=== PATIENT | female | born 1990 | race Hispanic/Latino ===

== ENCOUNTER 2018-01-18 21:07 | Emergency (ER) | payer OTHER ==
[2018-01-18 22:07] LABS: Urine Blood 1+ (NEG); Urine Glucose NEGATIVE (NEG); Urine Protein TRACE (NEG)
[2018-01-18] MEDS ORDERED: ACETAMINOPHEN 500 MG TAB ONE (22:12)
[2018-01-18] MEDS ORDERED: NA CHLORIDE 0.9% 500 ML ONE (22:12)
[2018-01-18 22:26] LABS: Absolute Lymphocytes (CBC) 3.3 K/uL (0.7-4.9); Absolute Monocytes 0.7 K/uL (0.1-1.3); Absolute Neutrophil 7.4 K/uL (1.8-8.0); Basophils % 0.2 % (0-1.3); Eosinophils % 2.3 % (0-4.4); Hematocrit 37.6 % (36.0-45.0); Lymphocytes % 28.4 % (15.3-44.8); MCH 31.1 pg (27.0-35.0); MCV 91.9 fL (80-100); MPV 8.2 fL (7.6-11.3); Monocytes % 6.2 % (3.3-12.3); RBC Red Blood Cell Count 4.09 M/uL (3.86-4.86)
[2018-01-19 01:17] LABS: Urine Amorphous Sediment 2+ /HPF (NONE SEEN); Urine Bacteria <20 /HPF (<20); Urine Culture Reflex Order NOT NEEDED; Urine RBC <5 /HPF (NONE SEEN)
[2018-01-19 01:25] LABS: Potassium 4.1 mmol/L (3.5-5.1)
--- NOTE | 2018-01-19 01:48 | ER ---
Nurse's Notes [facility] Name: Antonia Leblanc Age: 27 yrs Sex: Female : 1990 Arrival Date: 01/18/2018 Time: 21:12 Bed 20 Private MD: Diagnosis: related conditions, unspecified, first trimester;Lower abdominal pain, unspecified Presentation: 01/18 21:32 Presenting complaint: Patient states: Lower abdominal cramping since last week. Patient aj1 reports that she is 9 weeks . She called her OB (Dr. Gee in [place]) and was told if the cramping gets worse to come to the ER for evaluation. Patient states that she has an appointment with her OB on Monday. Denies vaginal bleeding or discharge. Transition of care: patient was not received from another setting of care. Onset of symptoms was January 2018. Risk Assessment: Do you want to hurt yourself or someone else? Patient reports no desire to harm self or others. Initial Sepsis Screen: Does the patient meet any 2 criteria? No. Patient's initial sepsis screen is negative. Does the patient have a suspected source of infection? No. Patient's initial sepsis screen is negative. Care prior to arrival: None. 21:32 Method Of Arrival: Ambulatory aj1 21:32 Acuity: CHANTELLE 3 aj1 Triage Assessment: 21:36 General: Appears in no apparent distress. uncomfortable, Behavior is calm, cooperative, aj1 appropriate for age. Pain: Complains of pain in right lower quadrant and left lower quadrant Pain currently is 5 out of 10 on a pain scale. Quality of pain is described as crampy. Neuro: Level of Consciousness is awake, alert, obeys commands. Cardiovascular: Patient's skin is warm and dry. Respiratory: Airway is patent Respiratory effort is even, unlabored, Respiratory pattern is regular, symmetrical. GI: Reports cramping. : Denies burning with urination, discharge. 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 - Social history:: Smoking status: Patient/guardian denies using tobacco. - Ebola Screening: : Patient denies travel to an Ebola-affected area in the 21 days before illness onset. Screenin:00 Abuse screen: Denies threats or abuse. Denies injuries from another. Nutritional ak1 screening: No deficits noted. Tuberculosis screening: No symptoms or risk factors identified. Fall Risk None identified. Assessment: 22:00 GI: Bowel sounds present X 4 quads. Abd is soft and non tender X 4 quads. Reports ak1 cramping, pt stated lower abd cramps intermittent for "weeks" pt stated appointment next Monday with Dr. Gee. pt denies vaginal bleeding, pt denies vaginal discharge. 01/19 00:28 Reassessment: Patient appears in no apparent distress at this time. No changes from ak1 previously documented assessment. Patient and/or family updated on plan of care and expected duration. Pain level reassessed. Patient is alert, oriented x 3, equal unlabored respirations, skin warm/dry/pink. lab results pending. 01:39 Reassessment: outside lab called for recollect, unable to contact inside lab after ak1 several attempts. 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 Vital Signs: 01/18 21:36 BP 132 / 78; Pulse 85; Resp 18; Temp 98.8(TE); Pulse Ox 100% on R/A; Weight 122.47 kg aj1 (R); Height 5 ft. 2 in. (157.48 cm) (R); Pain 5/10; 21:59 BP 121 / 74; Pulse 86; Resp 18; Pulse Ox 100% on R/A; ak1 01/19 01:38 BP 114 / 63; Pulse 82; Resp 16; Temp 98.6; Pulse Ox 100% on R/A; ak1 01/18 21:36 Body Mass Index 49.38 (122.47 kg, 157.48 cm) [facility] ED Course: 01/18 21:12 Patient arrived in ED. es 21:35 Triage completed. aj1 21:36 Arm band placed on Patient placed in an exam room. aj1 21:39 Franki Rogers PA is PHCP. cp 21:39 Franki Gray MD is Attending Physician. cp 21:41 Brissa Irizarry, RN is Primary Nurse. ak1 21:59 Initial lab(s) drawn, by me, sent to lab. Urine collected: clean catch specimen. ak1 Inserted saline lock: 20 gauge in right antecubital area, using aseptic technique. Blood collected. 22:00 Patient has correct armband on for positive identification. Placed in gown. Bed in low ak1 position. Call light in reach. Side rails up X 1. Adult w/ patient. Pulse ox on. NIBP on. 22:14 US Transvaginal Ob In Process Unspecified. EDMS 01/19 01:39 No provider procedures requiring assistance completed. ak1 01:57 IV discontinued, intact, bleeding controlled, No redness/swelling at site. Pressure ak1 dressing applied. Administered Medications: 01/18 22:30 Drug: NS 0.9% 500 ml Route: IV; Rate: bolus; Site: right antecubital; ak1 01/19 01:58 Follow up: IV Status: Completed infusion ak1 01/18 22:30 Drug: Tylenol 1000 mg Route: PO; ak1 01/19 01:57 Follow up: Response: No adverse reaction ak1 Outcome: 01:47 Discharge ordered by . cp 01:56 Discharged to home ambulatory, with family. ak1 01:56 Condition: good 01:56 Discharge instructions given to patient, family, Instructed on discharge instructions, follow up and referral plans. Demonstrated understanding of instructions, follow-up care. 01:57 Patient left the ED. ak1 Signatures: Dispatcher [employer] Rebekah Vieira RN RN aj1 Merry Mirza Amber, RN RN ak1 Franki Rogers PA PA cp
--- NOTE | 2018-01-19 01:48 | EDPHYS ---
Physician Documentation [facility] Name: Antonia Leblanc Age: 27 yrs Sex: Female : 1990 Arrival Date: 01/18/2018 Time: 21:12 Bed 20 Private MD: ED Physician Franki Gray HPI: 01/18 21:50 This 27 yrs old Female presents to ER via Ambulatory with complaints of cp Abdominal Cramping, 9 WEEKS PREG. 21:50 The patient presents to the emergency department with abdominal pain, of the left lower cp quadrant, that started last week, described as crampy. course: care: private OB physician, Dr. Gee, Leakage of Fluid: none appreciated, Ultrasound: the patient has not had an ultrasound, Risk/complications: no obvious risks or complications are appreciated. Previous pregnancies: in previous pregnancies patient has had vaginal delivery, no complications. Associated signs and symptoms: Pertinent negatives: chest pain, diarrhea, dysuria, fever, nausea, ruptured membranes, vaginal bleeding, vaginal discharge, vomiting. 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 - Social history:: Smoking status: Patient/guardian denies using tobacco. - Ebola Screening: : Patient denies travel to an Ebola-affected area in the 21 days before illness onset. ROS: 21:55 Constitutional: Negative for body aches, chills, fever, poor PO intake. cp 21:55 Eyes: Negative for injury, pain, redness, and discharge. cp 21:55 ENT: Negative for drainage from ear(s), ear pain, sore throat, difficulty swallowing, difficulty handling secretions. 21:55 Cardiovascular: Negative for chest pain, edema, palpitations. 21:55 Respiratory: Negative for cough, shortness of breath, wheezing. 21:55 Abdomen/GI: Positive for abdominal cramps, of the left lower quadrant, Negative for nausea and vomiting, black/tarry stool, rectal bleeding. 21:55 Back: Negative for pain at rest, pain with movement, radiated pain. 21:55 : Negative for urinary symptoms, flank pain, vaginal bleeding, vaginal discharge. 21:55 Skin: Negative for cellulitis, rash. 21:55 Neuro: Negative for altered mental status, headache, weakness. 21:55 All other systems are negative. Exam: 22:05 Constitutional: The patient appears in no acute distress, alert, awake, non-toxic, well cp developed, well nourished, obese. 22:05 Head/Face: Normocephalic, atraumatic. cp 22:05 Eyes: Periorbital structures: appear normal, Conjunctiva: normal, no exudate, no injection, Sclera: no appreciated abnormality, Lids and lashes: appear normal, bilaterally. 22:05 ENT: External ear(s): are unremarkable, Nose: is normal, Mouth: Lips: moist, Oral mucosa: pink and intact, moist, Posterior pharynx: is normal, airway is patent, no erythema, no exudate. 22:05 Neck: ROM/movement: is normal, is supple, without pain, no range of motions limitations, no nuchal rigidity. 22:05 Chest/axilla: Inspection: normal, Palpation: is normal, no crepitus, no tenderness. 22:05 Cardiovascular: Rate: normal, Rhythm: regular, Edema: is not appreciated. 22:05 Respiratory: the patient does not display signs of respiratory distress, Respirations: normal, no use of accessory muscles, no retractions, no splinting, no tachypnea, labored breathing, is not present, Breath sounds: are clear throughout, no decreased breath sounds, no stridor, no wheezing. 22:05 Abdomen/GI: Inspection: abdomen appears normal, Bowel sounds: active, all quadrants, Palpation: soft, in all quadrants, mild abdominal tenderness, in the left lower quadrant, rebound tenderness, is not appreciated, voluntary guarding, is not appreciated, involuntary guarding, is not appreciated. 22:05 Back: CVA tenderness, is absent. 22:05 Skin: cellulitis, is not appreciated, no rash present. 22:05 Neuro: Orientation: to person, place \T\ time. Mentation: lucid, able to follow commands, Motor: moves all fours, strength is normal, Sensation: no obvious gross deficits, Gait: is steady. Vital Signs: 21:36 BP 132 / 78; Pulse 85; Resp 18; Temp 98.8(TE); Pulse Ox 100% on R/A; Weight 122.47 kg aj1 (R); Height 5 ft. 2 in. (157.48 cm) (R); Pain 5/10; 21:59 BP 121 / 74; Pulse 86; Resp 18; Pulse Ox 100% on R/A; ak1 01/19 01:38 BP 114 / 63; Pulse 82; Resp 16; Temp 98.6; Pulse Ox 100% on R/A; ak1 01/18 21:36 Body Mass Index 49.38 (122.47 kg, 157.48 cm) aj1 MDM: 01/18 21:39 Patient medically screened. cp 23:00 Differential diagnosis: STD, ectopic . cp 01/19 01:46 Data reviewed: vital signs, nurses notes, lab test result(s), radiologic studies, cp ultrasound. 01:46 Counseling: I had a detailed discussion with the patient and/or guardian regarding: the cp historical points, exam findings, and any diagnostic results supporting the discharge/admit diagnosis, lab results, radiology results, the need for outpatient follow up, an OB/Gyne specialist, to return to the emergency department if symptoms worsen or persist or if there are any questions or concerns that arise at home. Special discussion: Based on the patient's Hx, exam, and Dx evaluation, there is no indication for emergent surgery or inpatient Tx. It is understood by the patient/guardian that if the Sx's persist or worsen they need to return immediately for re-evaluation. 01/18 21:39 Order name: Quantitative Hcg; Complete Time: 01:45 cp 01/18 21:39 Order name: Abo/rh Typing; Complete Time: 00:19 cp 01/18 21:39 Order name: Basic Metabolic Panel; Complete Time: 01:45 cp 01/19 01:45 Interpretation: Normal except: GLUC 112; GFR 86. cp 01/18 21:39 Order name: CBC with Diff; Complete Time: 00:19 cp 01/19 00:19 Interpretation: Normal except: WBC 11.7. cp 01/18 21:52 Order name: Urine Dipstick--Ancillary (enter results); Complete Time: 00:19 mw2 01/19 00:19 Interpretation: Normal except: UBLD 1+; UESTR 1+. 01/18 21:52 Order name: Urine --Ancillary (enter results); Complete Time: 00:19 mw2 01/19 00:19 Interpretation: Reviewed. 01/18 21:39 Order name: Urine Test (obtain specimen); Complete Time: 21:49 01/18 21:39 Order name: IV Saline Lock; Complete Time: 21:59 01/18 21:39 Order name: Labs collected and sent; Complete Time: 21:58 01/18 21:39 Order name: NPO; Complete Time: 21:42 cp 01/18 21:46 Order name: US Transvaginal Ob 01/19 00:53 Order name: Urine Microscopic Only; Complete Time: 01:17 cp 01/19 01:17 Interpretation: Normal except: AMORPH 2+. 01/18 21:39 Order name: Urine Dipstick-Ancillary (obtain specimen); Complete Time: 21:49 cp Administered Medications: 01/18 22:30 Drug: NS 0.9% 500 ml Route: IV; Rate: bolus; Site: right antecubital; [facility] 01/19 01:58 Follow up: IV Status: Completed infusion [facility] 01/18 22:30 Drug: Tylenol 1000 mg Route: PO; [facility] 01/19 01:57 Follow up: Response: No adverse reaction [facility] Disposition: 01/19/18 01:47 Discharged to Home. Impression: related conditions, unspecified, first trimester, Lower abdominal pain, unspecified. - Condition is Stable. - Discharge Instructions: Abdominal Pain During , Pelvic Rest. - Medication Reconciliation Form, Thank You Letter, Antibiotic Education, Prescription Opioid Use form. - Follow up: Private Physician; When: next week; Reason: Recheck today's complaints. - Problem is new. - Symptoms have improved. Addendum: 01/20/2018 06:54 Co-signature as Attending Physician, Franki Gray MD I agree with the assessment and c bowling plan of care. Signatures: Dispatcher [employer] Rebekah Vieira RN RN aj1 Franki Gray MD MD cha Krenek, Amber, RN RN ak1 Page, Franki, PA PA cp Corrections: (The following items were deleted from the chart) 01/19 01:57 01:47 01/19/2018 01:47 Discharged to Home. Impression: related conditions, ak1 unspecified, first trimester; Lower abdominal pain, unspecified. Condition is Stable. Forms are Medication Reconciliation Form, Thank You Letter, Antibiotic Education, Prescription Opioid Use. Follow up: Private Physician; When: next week; Reason: Recheck today's complaints. Problem is new. Symptoms have improved. cp
--- NOTE | 2018-01-19 07:27 | RAD REPORT ---
EXAM DESCRIPTION: US - Transvaginal OB - 01/18/2018 10:14 pm CLINICAL HISTORY: Positive , abdominal cramping Preliminary findings provided at the time of the study COMPARISON: None. TECHNIQUE: Endovaginal sonography performed. FINDINGS: Minimal amount of fluid or blood is present in the cervical canal. In the fundal endometri al cavity a normal shaped gestational sac is identifiable. [place]-rump length corresponds to a 9 week 1 day age. Heart rate is 165 BPM. No gross deformity of the pole. No large mass or hematoma wit hin the endometrial cavity. No myometrial mass. No fluid or blood in the cul-de-sac. Left ovary was not visualized. No left adnexal mass suspected. R ight ovary is normal in size. A 2.5 centimeter thin-walled anechoic right ovarian cyst is present. IMPRESSION: Single 9 week 1 day IUP. Heart rate is 165 BPM. Minimal fluid or blood in the endometrial cavity and cervical canal. No significant adnexal finding.
== END 2018-01-19 01:57 | disposition home or self-care (01) ==
LOC: ER 21:07
DX: R10.30 Lower abdominal pain, unspecified (principal); Z3A.10 10 weeks gestation of pregnancy
CPT/HCPCS: 36415; 76817; 80048; 81003; 81015; 81025; 84702; 85025; 86900; 86901; 96360; 96361; 99284

== ENCOUNTER 2018-02-28 14:45 | Emergency (ER) | payer OTHER ==
[2018-02-28 15:44] LABS: Absolute Lymphocytes (CBC) 2.2 K/uL (0.7-4.9); Absolute Monocytes 0.6 K/uL (0.1-1.3); Absolute Neutrophil 10.9 K/uL (1.8-8.0); Basophils % 0.2 % (0-1.3); Eosinophils % 1.6 % (0-4.4); Hematocrit 36.2 % (36.0-45.0); Lymphocytes % 15.4 % (15.3-44.8); MCH 31.3 pg (27.0-35.0); MCV 90.7 fL (80-100); MPV 8.2 fL (7.6-11.3); Monocytes % 4.4 % (3.3-12.3)
[2018-02-28 15:47] LABS: Urine Bacteria LOADED /HPF (<20); Urine Culture Reflex Order NOT NEEDED; Urine RBC 20-50 /HPF (NONE SEEN)
--- NOTE | 2018-02-28 15:58 | RAD REPORT ---
EXAM DESCRIPTION: US - Abdomen Exam Limited - 02/28/2018 3:53 pm CLINICAL HISTORY: right sided abdominal pain COMPARISON: No comparisons FINDINGS: The gallbladder demonstrates prominent shadowing gallstone. No pericholecystic fluid or ga llbladder wall thickening. The common bile duct is normal measuring 4 mm. The liver demonstrates no findings of intrahepatic biliary dilatation. IMPRESSION: Cholelithiasis.
--- NOTE | 2018-02-28 15:59 | RAD REPORT ---
EXAM DESCRIPTION: US - OB Limited - 02/28/2018 3:53 pm CLINICAL HISTORY: ABD PAIN COMPARISON: Transvaginal OB dated 01/18/2018 FINDINGS: A single gestational sac is seen within the uterus. The shape of the sac is within normal limits for gestational age. Within the sac is a single pole with crown-rump length of 9.6 cm, c orrelating to estimated gestational age of 15 weeks 3 days gestational age. Estimated date of deliver y is 08/19/2018. Heart rate is 161 BPM. Placental masses posterior. The maternal adnexa and ovaries are within normal limits. No acute abnormality detected. IMPRESSION: Single live early intrauterine gestation with estimated gestational age of 15 weeks 3 da ys, [place]AD[place] 08/19/2018. Placenta is posterior.
[2018-02-28 16:02] LABS: ALT/SGPT 16 U/L (12-78); AST/SGOT 15 U/L (15-37); Albumin 3.1 g/dL (3.4-5.0); Alkaline Phosphatase 71 U/L (45-117); BUN Blood Urea Nitrogen 5 mg/dL (7-18); Bicarbonate 23 mmol/L (21-32); Bilirubin Direct < 0.1 mg/dL (0-0.2); Bilirubin Total 0.3 mg/dL (0.2-1.0); Glucose Level 94 mg/dL (74-106); Lipase 127 U/L (73-393); Potassium 3.5 mmol/L (3.5-5.1); Protein, Total 7.4 g/dL (6.4-8.2); Sodium Level 138 mmol/L (136-145)
[2018-02-28 16:44] LABS: Urine Blood 1+ (NEG); Urine Glucose NEGATIVE (NEG); Urine Protein 2+ (NEG); Urine Specific Gravity >1.030 (1.005-1.030)
[2018-02-28] MEDS ORDERED: CEFTRIAXONE/SWI 1gm 1 GM/10 ML SYR ONE (16:52)
--- NOTE | 2018-02-28 17:17 | ER ---
Nurse's Notes [facility] Name: Antonia Leblanc Age: 27 yrs Sex: Female : 1990 Arrival Date: 02/28/2018 Time: 14:48 Bed 23 Private MD: Unknown, Unknown Diagnosis: Cholelithiasis;Urinary tract infection, site not specified Presentation: 02/28 15:12 Presenting complaint: Patient states: She starting having back pain 4 hours ago, and aj1 then the pain started getting worse and began radiate to the front, states that pain is constant, but keeps getting worse as the day progresses. Denies vaginal bleeding. Patient reports that she has had some pain with urination since Monday. Transition of care: patient was not received from another setting of care. Onset of symptoms was February 28, 2018. Risk Assessment: Do you want to hurt yourself or someone else? Patient reports no desire to harm self or others. Initial Sepsis Screen: Does the patient meet any 2 criteria? No. Patient's initial sepsis screen is negative. Does the patient have a suspected source of infection? No. Patient's initial sepsis screen is negative. Care prior to arrival: None. 15:12 Method Of Arrival: Ambulatory aj1 15:12 Acuity: CHANTELLE 3 aj1 Triage Assessment: 15:14 General: Appears in no apparent distress. uncomfortable, Behavior is calm, cooperative, aj1 appropriate for age. Pain: Complains of pain in back, right lower quadrant and left lower quadrant Pain currently is 6 out of 10 on a pain scale. Neuro: Level of Consciousness is awake, alert, obeys commands. Cardiovascular: Patient's skin is warm and dry. Respiratory: Airway is patent Respiratory effort is even, unlabored, Respiratory pattern is regular, symmetrical. Musculoskeletal: Range of motion: intact in all extremities. 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 - Social history:: Smoking status: Patient/guardian denies using tobacco. - Ebola Screening: : Patient denies travel to an Ebola-affected area in the 21 days before illness onset. Screenin:38 Abuse screen: Denies threats or abuse. Denies injuries from another. Nutritional kr2 screening: No deficits noted. Tuberculosis screening: No symptoms or risk factors identified. Fall Risk None identified. Assessment: 15:20 General: Appears in no apparent distress. uncomfortable, well groomed, well developed, kr2 well nourished, Behavior is calm, cooperative, appropriate for age. Pain: Complains of pain in lower back Pain radiates to abdomen Pain currently is 6 out of 10 on a pain scale. Quality of pain is described as aching, Pain began 4 hours ago. Is continuous, Alleviated by nothing. Neuro: Level of Consciousness is awake, alert, obeys commands, Oriented to person, place, time, situation, Appropriate for age Intact. Cardiovascular: Capillary refill < 3 seconds in bilateral fingers Patient's skin is warm and dry. Respiratory: Airway is patent Respiratory effort is even, unlabored, Respiratory pattern is regular, symmetrical, Breath sounds are clear bilaterally. GI: Abdomen is round non-distended, Bowel sounds present X 4 quads. Abd is soft and non tender X 4 quads. : Urine is clear, Reports pain with urination, Denies cramping vaginal bleeding. Derm: Skin is intact, is healthy with good turgor, Skin is pink, warm \T\ dry. Musculoskeletal: Circulation, motion, and sensation intact. 16:30 Reassessment: Patient appears in no apparent distress at this time. Patient and/or kr2 family updated on plan of care and expected duration. Pain level reassessed. Patient is alert, oriented x 3, equal unlabored respirations, skin warm/dry/pink. 17:25 Reassessment: No changes from previously documented assessment. kr2 Vital Signs: 15:14 BP 129 / 65; Pulse 94; Resp 18; Temp 97.2; Pulse Ox 100% on R/A; Weight 121.56 kg (R); aj1 Height 5 ft. 2 in. (157.48 cm); Pain 6/10; 17:00 BP 125 / 70; Pulse 95; Resp 18; Pulse Ox 100% ; kr2 15:14 Body Mass Index 49.02 (121.56 kg, 157.48 cm) aj1 ED Course: 14:48 Patient arrived in ED. mr 14:49 Unknown, Unknown is Private Physician. mr 15:14 Triage completed. aj1 15:14 Arm band placed on Patient placed in an exam room. aj1 15:17 Timothy Gongora PA is PHCP. herb 15:17 Franki Gray MD is Attending Physician. jm 15:25 Urine collected: clean catch specimen, clear. kr2 15:35 Inserted saline lock: 20 gauge in right antecubital area, using aseptic technique. kr2 Blood collected. 15:38 Patient has correct armband on for positive identification. Bed in low position. Call kr2 light in reach. Side rails up X 1. Pulse ox on. NIBP on. Door closed. Warm blanket given. Head of bed elevated. 15:55 US OB Limited In Process Unspecified. EDMS 15:55 US Abdomen Limited In Process Unspecified. EDMS 17:27 No provider procedures requiring assistance completed. IV discontinued, intact, kr2 bleeding controlled, No redness/swelling at site. Pressure dressing applied. Administered Medications: 16:50 Drug: Rocephin - (cefTRIAXone) 1 grams Route: IVPB; Infused Over: 30 mins; Site: right kr2 antecubital; 17:15 Follow up: Response: No adverse reaction; IV Status: Completed infusion kr2 17:16 Drug: Bentyl 20 mg Route: PO; kr2 17:25 Follow up: Response: Medication administered at discharge. kr2 17:16 Drug: Tylenol 1000 mg Route: PO; kr2 17:26 Follow up: Response: Medication administered at discharge. kr2 17:27 Follow up: Response: Medication administered at discharge. kr2 Outcome: 17:15 Discharge ordered by . jmm 17:27 Discharged to home ambulatory. kr2 17:27 Condition: good 17:27 Discharge instructions given to patient, Instructed on discharge instructions, follow up and referral plans. medication usage, Demonstrated understanding of instructions, follow-up care, medications, Prescriptions given X 2. 17:28 Patient left the ED. kr2 Signatures: Dispatcher [employer] Rebekah Vieira, RN RN aj1 Timothy Gongora PA PA jmm Rivera, Mary Anali Watson RN RN kr2
--- NOTE | 2018-02-28 17:17 | EDPHYS ---
Physician Documentation [facility] Name: Antonia Leblanc Age: 27 yrs Sex: Female : 1990 Arrival Date: 02/28/2018 Time: 14:48 Bed 23 Private MD: Unknown, Unknown ED Physician Franki Gray HPI: 02/28 15:38 This 27 yrs old Female presents to ER via Ambulatory with complaints of 16 wks jmm , Back Pain, Abdominal Pain. 15:38 The patient presents with abdominal pain in the right upper quadrant, right lower jmm quadrant. Onset: The symptoms/episode began/occurred today. The symptoms radiate to back. Associated signs and symptoms: Pertinent negatives: nausea and vomiting, diarrhea. This is a 27 year old female 16 weeks presents to the ED with back pain beginning approx 2 hours ago. Patient also complains of dysuria. Denies vomiting or diarrhea. . 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 - Social history:: Smoking status: Patient/guardian denies using tobacco. - Ebola Screening: : Patient denies travel to an Ebola-affected area in the 21 days before illness onset. ROS: 15:38 Constitutional: Negative for fever, chills, and weight loss, Eyes: Negative for injury, jmm pain, redness, and discharge, Cardiovascular: Negative for chest pain, palpitations, and edema, Respiratory: Negative for shortness of breath, cough, wheezing, and pleuritic chest pain. 15:38 Abdomen/GI: Positive for abdominal pain. 15:38 Back: Positive for pain at rest, pain with movement. 15:38 All other systems are negative. Exam: 15:38 Head/Face: atraumatic. Eyes: EOMI, no conjunctival erythema appreciated Neck: jmm Trachea midline, Supple Chest/axilla: Normal chest wall appearance and motion. Cardiovascular: Regular rate and rhythm. No edema appreciated 15:38 Constitutional: The patient appears in no acute distress, alert, awake. 15:38 Abdomen/GI: Inspection: abdomen appears normal, Bowel sounds: normal, Palpation: abdomen is soft and non-tender, in all quadrants, rebound tenderness, is not appreciated, voluntary guarding, is not appreciated, involuntary guarding, is not appreciated, Indicators: McBurney's point is not tender, Martinez's sign is negative, Rovsing's sign is negative. 15:38 Back: CVA tenderness, is absent. 15:38 Musculoskeletal/extremity: ROM: intact in all extremities. 15:38 Skin: Appearance: Color: normal in color. 15:38 Neuro: Orientation: is normal, Mentation: is normal, Memory: is normal. 15:38 Psych: Behavior/mood is pleasant, cooperative. Vital Signs: 15:14 BP 129 / 65; Pulse 94; Resp 18; Temp 97.2; Pulse Ox 100% on R/A; Weight 121.56 kg (R); aj1 Height 5 ft. 2 in. (157.48 cm); Pain 6/10; 17:00 BP 125 / 70; Pulse 95; Resp 18; Pulse Ox 100% ; kr2 15:14 Body Mass Index 49.02 (121.56 kg, 157.48 cm) aj1 MDM: 15:17 Patient medically screened. radha 17:12 Data reviewed: vital signs, nurses notes. Counseling: I had a detailed discussion with herb the patient and/or guardian regarding: the historical points, exam findings, and any diagnostic results supporting the discharge/admit diagnosis, radiology results, the need for outpatient follow up, to return to the emergency department if symptoms worsen or persist or if there are any questions or concerns that arise at home. ED course: Patient has no abdominal pain on palpation. Patient has no vomiting or diarrhea. The pain initially began in the upper back. Symptoms appear consistent with biliary pain opposed to appendicitis. US findings consistent with this. Patient also has UTI which is consistent with dysuria. Patient is non toxic in appearance and can tolerate PO in the ED. Patient prescribed oral antibiotics and given early appenditicitis return precautions. patient understood and agrees with the plan of care. . 02/28 14:52 Order name: Urine Culture [facility] 02/28 14:52 Order name: Urine Microscopic Only; Complete Time: 16:04 [facility] 02/28 15:27 Order name: Basic Metabolic Panel; Complete Time: 16:04 [facility] 02/28 15:27 Order name: CBC with Diff; Complete Time: 16:04 [facility] 02/28 15:27 Order name: Creatinine for Radiology; Complete Time: 16:04 [facility] 02/28 15:27 Order name: Hepatic Function; Complete Time: 16:04 [facility] 02/28 15:02 Order name: US OB Limited; Complete Time: 16:04 snw 02/28 15:27 Order name: US Abdomen Limited; Complete Time: 16:04 [facility] 02/28 15:27 Order name: Lipase; Complete Time: 16:04 [facility] 02/28 16:26 Order name: Urine Dipstick--Ancillary (enter results); Complete Time: 16:45 bd 02/28 16:26 Order name: Urine --Ancillary (enter results); Complete Time: 16:45 02/28 14:52 Order name: Urine Dipstick-Ancillary (obtain specimen); Complete Time: 15:28 [facility] 02/28 15:27 Order name: IV Saline Lock; Complete Time: 15:36 [facility] 02/28 15:27 Order name: Labs collected and sent; Complete Time: 15:36 [facility] Administered Medications: 16:50 Drug: Rocephin - (cefTRIAXone) 1 grams Route: IVPB; Infused Over: 30 mins; Site: right kr2 antecubital; 17:15 Follow up: Response: No adverse reaction; IV Status: Completed infusion 2 17:16 Drug: Bentyl 20 mg Route: PO; kr2 17:25 Follow up: Response: Medication administered at discharge. kr2 17:16 Drug: Tylenol 1000 mg Route: PO; kr2 17:26 Follow up: Response: Medication administered at discharge. 2 17:27 Follow up: Response: Medication administered at discharge. 2 Disposition: 02/28/18 17:15 Discharged to Home. Impression: Cholelithiasis, Urinary tract infection, site not specified. - Condition is Stable. - Discharge Instructions: Cholelithiasis, and Urinary Tract Infection. - Prescriptions for Augmentin 875- 125 mg Oral Tablet - take 1 tablet by ORAL route every 12 hours for 10 days; 20 tablet. Bentyl 20 mg Oral Tablet - take 1 tablet by ORAL route every 6 hours As needed; 20 tablet. - Medication Reconciliation Form, Thank You Letter, Antibiotic Education, Prescription Opioid Use form. - Follow up: Private Physician; When: 2 - 3 days; Reason: Recheck today's complaints, Continuance of care, Re-evaluation by your physician. Addendum: 03/05/2018 06:24 Co-signature as Attending Physician, Franki Gray MD I agree with the assessment and c bowling plan of care. Signatures: Dispatcher [employer] EDRebekah Hinojosa, RN RN aj1 Franki Gray MD MD cha Therrien, Shelly, STONE DECORATOR-C STONE DECORATOR-Csnw Timothy Gongora PA PA jmm Reaves, Karey, RN RN kr2 Corrections: (The following items were deleted from the chart) 02/28 17:28 17:15 02/28/2018 17:15 Discharged to Home. Impression: Cholelithiasis; Urinary tract kr2 infection, site not specified. Condition is Stable. Forms are Medication Reconciliation Form, Thank You Letter, Antibiotic Education, Prescription Opioid Use. Follow up: Private Physician; When: 2 - 3 days; Reason: Recheck today's complaints, Continuance of care, Re-evaluation by your physician. herb
[2018-02-28] MEDS ORDERED: ACETAMINOPHEN 500 MG TAB ONE (17:18)
[2018-02-28] MEDS ORDERED: DICYCLOMINE HCL 10 MG CAP ONE (17:18)
== END 2018-02-28 17:28 | disposition home or self-care (01) ==
LOC: ER 14:45
DX: O99.612 Diseases of the digestive system complicating pregnancy, second trimester (principal); O23.42 Unspecified infection of urinary tract in pregnancy, second trimester; Z3A.16 16 weeks gestation of pregnancy
CPT/HCPCS: 36415; 76705; 76815; 80048; 80076; 81003; 81015; 81025; 83690; 85025; 87077; 87086; 87088; 87186; 96365; 99284; J0696

== ENCOUNTER 2020-09-02 17:53 | Emergency (ER) | payer OTHER, SELFPAY ==
--- OUTSIDE RECORDS SUMMARY | 2020-09-02 17:56 | XMS REPORT | Continuity of Care Document ---
:1990 Author Organization [facility] t Address [address] [place] [address] Care Team Providers Name Role Phone Hattie Salmeron Attending Clinician Problems This patient has no known problems. Allergies, Adverse Reactions, Alerts This patient has no known allergies or adverse reactions. Medications This patient has no known medications. Procedures This patient has no known procedures. Encounters Start End Encounter Admission Attending Care Care Encounter Source Date/Time Date/Time Type Type Clinicians Facility Department ID 2020-01-07 2020-01-07 Telephone MARGARITA Arellano [id number] 00:00:00 00:00:00 Lupe Kuhn DAM TENDER ASSISTANT [id number] REGIONAL [id number] MATERNAL [id number] & CHILD 107 [facility] 2020-01-03 2020-01-03 Telephone Adan ARLITO [id number] 00:00:00 00:00:00 Lupe Kuhn DAM TENDER ASSISTANT [id number] REGIONAL [id number] MATERNAL [id number] & CHILD 107 [facility] 2020-01-01 2020-01-01 Telephone Adan [facility] [id number] 00:00:00 00:00:00 Lupe Kuhn DAM TENDER ASSISTANT [id number] REGIONAL [id number] MATERNAL [id number] & CHILD 107 [facility] Results This patient has no known results.
[2020-09-02 18:23] LABS: Urine Blood Trace-intact (Negative); Urine Glucose Negative (Negative); Urine Protein Negative (Negative); Urine Specific Gravity 1.015 (1.005-1.030); Urine pH 6.5 (5.0-7.0)
[2020-09-02 18:40] LABS: Absolute Lymphocytes (CBC) 3.7 K/uL (0.7-4.9); Basophils % 0.5 % (0-1.3); Lymphocytes % 29.7 % (15.3-44.8); MPV 8.1 fL (7.6-11.3); RBC Red Blood Cell Count 4.45 M/uL (3.86-4.86)
[2020-09-02 19:23] LABS: BUN Blood Urea Nitrogen 7 mg/dL (7-18); Bicarbonate 25 mmol/L (21-32); Glucose Level 115 mg/dL (74-106); HCG, Quantitative 33659 mIU/mL (1-3); Potassium 3.7 mmol/L (3.5-5.1); Sodium Level 137 mmol/L (136-145)
--- NOTE | 2020-09-02 20:00 | RAD REPORT ---
EXAM DESCRIPTION: US - Transvaginal OB - 09/02/2020 7:48 pm CLINICAL HISTORY: with abdominal pain COMPARISON: None. FINDINGS: The uterus measures 13 x 6 x 7 centimeters. A gestational sac is present within the endom etrium. Within this is a pole with a crown-rump length 2.3 centimeters. Cardiac activity 153 be ats per minute. Right ovary is normal in size and echotexture. Left ovary was not seen secondary to overlying bowel g as. Right and left adnexal are unremarkable No significant free fluid IMPRESSION: Single live intrauterine with an estimated gestational age 8 weeks 5 days MADINA 04/09/2021
--- NOTE | 2020-09-02 20:09 | ER ---
Nurse's Notes [facility] Name: Antonia Leblanc Age: 29 yrs Sex: Female : 1990 Arrival Date: 09/02/2020 Time: 17:56 Bed 17 Private MD: Diagnosis: Low back pain;8 weeks gestation of Presentation: 09/02 18:07 Chief complaint: Patient states: brownish/yellowish discharge after wiping that was em there yesterday, denies abdominal/pelvic pain, reports mild back pain rates pain 1.5/10, called her DR and told her to come get an US in the ED. Coronavirus screen: Client denies travel out of the [place] in the last 14 days. Ebola Screen: Patient negative for fever greater than or equal to 101.5 degrees Fahrenheit, and additional compatible Ebola Virus Disease symptoms Patient denies exposure to infectious person. Patient denies travel to an Ebola-affected area in the 21 days before illness onset. No symptoms or risks identified at this time. Initial Sepsis Screen: Does the patient meet any 2 criteria? No. Patient's initial sepsis screen is negative. Does the patient have a suspected source of infection? No. Patient's initial sepsis screen is negative. Risk Assessment: Do you want to hurt yourself or someone else? Patient reports no desire to harm self or others. Onset of symptoms. 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 - Social history:: Smoking status: Patient denies any tobacco usage or history of. Screenin:33 Abuse screen: Denies threats or abuse. Nutritional screening: No deficits noted. ap3 Tuberculosis screening: No symptoms or risk factors identified. Fall Risk None identified. Assessment: 18:32 General: Appears in no apparent distress. comfortable, Behavior is calm, cooperative, ap3 appropriate for age. Pain: Denies pain. Neuro: Level of Consciousness is awake, alert, obeys commands, Oriented to person, place, time, situation. Cardiovascular: Denies chest pain, Capillary refill < 3 seconds. Respiratory: Airway is patent Respiratory effort is even, unlabored, Respiratory pattern is regular, symmetrical. GI: No signs and/or symptoms were reported involving the gastrointestinal system. : Reports vaginal bleeding that is spotty, since yesterday. EENT: No signs and/or symptoms were reported regarding the EENT system. Derm: No signs and/or symptoms reported regarding the dermatologic system. 19:00 Reassessment: Patient appears in no apparent distress at this time. Patient and/or jb4 family updated on plan of care and expected duration. Pain level reassessed. Patient is alert, oriented x 3, equal unlabored respirations, skin warm/dry/pink. 20:00 Reassessment: Patient appears in no apparent distress at this time. Patient and/or jb4 family updated on plan of care and expected duration. Pain level reassessed. Patient is alert, oriented x 3, equal unlabored respirations, skin warm/dry/pink. Vital Signs: 18:07 BP 123 / 61; Pulse 85; Resp 18; Temp 97.9; Pulse Ox 98% on R/A; Weight 117.93 kg; em Height 5 ft. 2 in. (157.48 cm); Pain 2/10; 18:07 Body Mass Index 47.55 (117.93 kg, 157.48 cm) em ED Course: 17:56 Patient arrived in ED. ds1 18:10 Triage completed. em 18:11 Arm band placed on. em 18:13 Lexi Anderson FNP-C is PSYCHIATRICP. kb 18:13 Guerrero Cerda MD is Attending Physician. kb 18:16 Darlin Elizalde RN is Primary Nurse. ap3 18:22 Urine collected: clean catch specimen, clear. em 18:33 Inserted saline lock: 22 gauge in right antecubital area, using aseptic technique. ap3 Blood collected. 18:34 Patient has correct armband on for positive identification. Placed in gown. Bed in low ap3 position. Call light in reach. Side rails up X 1. Adult w/ patient. Pulse ox on. NIBP on. Door closed. Noise minimized. 19:14 Primary Nurse role handed off by Darlin Elizalde, RN mw2 19:48 Transvaginal Ob In Process Unspecified. EDMS 20:25 No provider procedures requiring assistance completed. IV discontinued, intact, jb4 bleeding controlled, No redness/swelling at site. Pressure dressing applied. Administered Medications: No medications were administered Outcome: 20:09 Discharge ordered by . rohan 20:25 Discharged to home ambulatory, with family. jb4 20:25 Condition: stable 20:25 Discharge instructions given to patient, Instructed on discharge instructions, follow up and referral plans. Demonstrated understanding of instructions, follow-up care. 20:25 Patient left the ED. jb4 Signatures: Dispatcher [employer] EDKY Lexi Anderson, RECRUITING SPECIALIST-C RECRUITING SPECIALIST-Adalid Cunha, RN RN Thaira Mendez ds1 Cleveland Ahuja RN RN jb4 Darlin Elizalde, RN RN ap3 Tayler Nichols mw2 Corrections: (The following items were deleted from the chart) 18:37 18:11 PMHx: None; saad [email or web address]
--- NOTE | 2020-09-02 20:09 | EDPHYS ---
Physician Documentation [facility] Name: Antonia Leblanc Age: 29 yrs Sex: Female : 1990 Arrival Date: 09/02/2020 Time: 17:56 Bed 17 Private MD: ED Physician Guerrero Cerda HPI: 09/02 21:09 This 29 yrs old Female presents to ER via Ambulatory with complaints of kb Vaginal Discharge - 9 Wks Preg. 21:09 The patient presents to the emergency department with brown discharge yesterday, low kb back pain today. The estimated gestational age is 9 weeks. course: care: at a clinic. Previous pregnancies: in previous pregnancies patient has had. Associated signs and symptoms: Pertinent positives: vaginal discharge, low back pain. The patient has not experienced similar symptoms in the past. The patient has not recently seen a physician. Pt reports brown discharge, dime sized, yesterday and has had low back pain today. Went to see OB for these complaints and was sent here for US. 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 - Social history:: Smoking status: Patient denies any tobacco usage or history of. ROS: 19:48 Constitutional: Negative for fever, chills, and weight loss. kb 19:48 Back: Positive for pain at rest, of the low back area. 19:48 : Positive for vaginal discharge. 19:48 All other systems are negative. Exam: 21:07 Constitutional: This is a well developed, well nourished patient who is awake, alert, kb and in no acute distress. ENT: Moist Mucous membranes Respiratory: Respirations even and unlabored. No increased work of breathing, no retractions or nasal flaring. Abdomen/GI: Soft, non-tender. No distention Skin: Warm, dry with normal turgor. Normal color. MS/ Extremity: Pulses equal, no cyanosis. Neurovascular intact. Full, normal range of motion. Neuro: Awake and alert, GCS 15, oriented to person, place, time, and situation. Moves all extremities. Normal gait. Psych: Awake, alert, with orientation to person, place and time. Behavior, mood, and affect are within normal limits. Vital Signs: 18:07 BP 123 / 61; Pulse 85; Resp 18; Temp 97.9; Pulse Ox 98% on R/A; Weight 117.93 kg; em Height 5 ft. 2 in. (157.48 cm); Pain 2/10; 18:07 Body Mass Index 47.55 (117.93 kg, 157.48 cm) em MDM: 18:13 Patient medically screened. kb 21:06 Data reviewed: vital signs, nurses notes. Data interpreted: Pulse oximetry: on room air kb is 98 %. Interpretation: normal. Counseling: I had a detailed discussion with the patient and/or guardian regarding: the historical points, exam findings, and any diagnostic results supporting the discharge/admit diagnosis, lab results, radiology results, the need for outpatient follow up, an OB/Gyne specialist, to return to the emergency department if symptoms worsen or persist or if there are any questions or concerns that arise at home. 09/02 18:19 Order name: Quantitative Hcg; Complete Time: 19: em 09/02 18:19 Order name: Abo/rh Typing; Complete Time: 19: em 09/02 18:14 Order name: Urine Test (obtain specimen); Complete Time: 18:22 ap3 09/02 18:14 Order name: IV Saline Lock; Complete Time: 18:32 ap3 09/02 18:19 Order name: Basic Metabolic Panel; Complete Time: 19:26 em 09/02 18:19 Order name: CBC with Diff; Complete Time: 18:43 em 09/02 18:23 Order name: Urine --Ancillary (enter results); Complete Time: 20:23 bd 09/02 18:23 Order name: Urine Dipstick-Ancillary; Complete Time: 18:27 EDMS 09/02 18:25 Order name: US Transvaginal Ob; Complete Time: 20:03 em 09/02 18:14 Order name: Labs collected and sent; Complete Time: 18:32 ap3 09/02 18:14 Order name: NPO; Complete Time: 18:17 ap3 09/02 18:14 Order name: Urine Dipstick-Ancillary (obtain specimen); Complete Time: 18:22 ap3 Administered Medications: No medications were administered Disposition: 09/03 08:37 Co-signature as Attending Physician, Guerrero Cerda MD I agree with the assessment and kdr plan of care. Disposition: 09/02/20 20:09 Discharged to Home. Impression: Low back pain, 8 weeks gestation of . - Condition is Stable. - Discharge Instructions: First Trimester of , [id number], Vaginal Bleeding During , First Trimester, [id number]. - Medication Reconciliation Form, Thank You Letter, Antibiotic Education, Prescription Opioid Use form. - Follow up: Emergency Department; When: As needed; Reason: Worsening of condition. Follow up: Private Physician; When: 2 - 3 days; Reason: Recheck today's complaints, Continuance of care, Re-evaluation by your physician. Signatures: Dispatcher [employer] EDLexi Arnett, DRILL PRESS TENDER-C DRILL PRESS TENDER-Ckb Guerrero Cerda MD MD [facility] Adalid Holloway, RN RN Cleveland Ray RN RN jb4 Darlin Elizalde RN RN ap3 Corrections: (The following items were deleted from the chart) 09/02 18:37 18:11 PMHx: None; em ap3 20:25 20:09 09/02/2020 20:09 Discharged to Home. Impression: Low back pain; 8 weeks gestation jb4 of . Condition is Stable. Forms are Medication Reconciliation Form, Thank You Letter, Antibiotic Education, Prescription Opioid Use. Follow up: Emergency Department; When: As needed; Reason: Worsening of condition. Follow up: Private Physician; When: 2 - 3 days; Reason: Recheck today's complaints, Continuance of care, Re-evaluation by your physician. kb
[2020-09-02 20:21] LABS: Urine Specific Gravity/Preg 1.015 (1.005-1.030)
[2020-09-02 22:23] VITALS: BP 123/61; TEMP 97.9; O2SAT 98
== END 2020-09-02 20:25 | disposition home or self-care (01) ==
LOC: ER 17:53
DX: O26.891 Other specified pregnancy related conditions, first trimester (principal); O24.419 Gestational diabetes mellitus in pregnancy, unspecified control; Z3A.08 8 weeks gestation of pregnancy
CPT/HCPCS: 36415; 76817; 80048; 81003; 81025; 84702; 85025; 86900; 86901; 99284

== ENCOUNTER 2021-07-05 15:11 | Emergency (ER) | payer OTHER, SELFPAY ==
--- OUTSIDE RECORDS SUMMARY | 2021-07-05 15:14 | XMS REPORT | Continuity of Care Document ---
:1990 Author Organization [facility] t Address [address] [place] [address] Care Team Providers Name Role Phone Rico FISCHER, R Primary Care Physician Freddie ZAMARRIPAP, C Attending Clinician Adan FISCHER N Attending Clinician Payers Payer Name Policy Type Policy Number Effective Date Expiration Date S ource Advance Directives Directive Decision Effective Termination Comments Source Date Date Healthcare Agents on N/A Univ ersity FileNameRelationshipHealthcare [facility] [place] Agent Medical RelationshipCommunicationVeronica Critical access hospitalther[facility] Care [phone] (Mobile) Problems Condition Condition Condition Status Onset Resolution Last Treating Co mments Source Name Details Category Date Date Treatment Clinician Date Encounter Encounter Disease Active Uni vers for IUD for IUD 2-25 [place] Other Other Disease Active Univers general general 2-11 [place] advice and advice 00 Dc dical for for Branch contracept contracept murali murali management management History of History of Disease Active 2020-04 U nivers COVID-19 COVID-19 2-06 ity of 00:00: [place] 00 Medical Branch Breech Breech Disease Active 2020-04 Univers presentati presentati 2-06 it y of on, single on, single 00:[place] or or 00 Medical unspecifie unspecifie Br anch d fetus d fetus Pre-existi Pre-existi Disease Active 2020-04 U nivers ng ng 1-11 ity of diabetes diabetes 00:00: [place] mellitus mellitus 00 Medica l affecting affecting Bran ch in third in third trimester, trimester, antepartum antepartum Need for Need for Disease Active 2020-04 Unive rs immunizati immunizati 1-11 [place] y of [place] against [place] influenza influenza 00 [facility] Pre-existi Pre-existi Disease Active U nivers ng ng 7-14 ity of diabetes diabetes 00:00: [place] mellitus mellitus 00 Medica l affecting affecting Bran ch in second in second trimester, trimester, antepartum antepartum Morbid Morbid Disease Active Univers obesity obesity 4-23 it[place] of with body with body [place] mass index mass index 00 Me dical of 50 or of 50 or Branch higher higher Allergies, Adverse Reactions, Alerts This patient has no known allergies or adverse reactions. Social History Social Habit Start Date Stop Date Quantity Comments Source Exposure to Not sure [facility] SARS-CoV-2 (event) [facility] Alcohol intake 2021-05-21 2021-05-21 0 /d [facility] 00:00:00 00:00:[address] [facility] Tobacco use and 2015-08-10 2015-08-10 Never used [facility] exposure 00:00:00 00:00:[address] [facility] History of tobacco 2015-06-10 Smoker [facility] use 00:00:[address] [facility] Sex Assigned At [birth year] [facility] 00:00:00 00:00:[address] [facility] Smoking Status Start Date Stop Date Source Former smoker 2015-08-10 00:00:00 2015-08-10 00:00:00 [facility] Medications Ordered Filled Start Stop Current Ordering Indication Dosage Frequency Signature Comments Components Source Medication Medication Date Date Medication? 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 Medical Branch insulin NPH 2020-04- No [id number] 22U inject 22 Univers 100 unit/mL -25 03-26 Units ity of injection 00:00: 04:59 under the [place] 00 :00 skin every Medical morning Branch for 90 days. docusate 2020-04 Yes [id number] 240mg Take 1 U nivers calcium 240 2-24 capsule by it y of mg capsule 00:00: mouth [place] 00 daily as Medical needed for Branch Constipati on. ferrous 2020-04 Yes [id number] 325mg Take 1 Un usama sulfate 325 2-24 tablet by ity of mg (65 mg 00:00: mouth 2 [place] iron) 00 (two) Medical tablet times Branch daily. insulin NPH 2020-04- No [id number] 10U inject 10 Univers 100 unit/mL 2-24 03-25 Units ity of injection 00:00: 04:59 [place] the [place] 00 :00 skin every Medical evening Branch for 90 days. insulin 2020-04- No [id number] 10U inject 10 Univers regular 2-24 03-25 Units ity of human 100 00:00: 04:59 [place] unit/mL 00 :00 skin every Medica l injection morning Branch and evening for 90 days. ONETOUCH 2020-04 Yes USE FOUR Unive rs DELICA PLUS 0-27 TIMES A ity o f LANCET 33 00:00: DAY. [place] gauge Misc 00 Medical Branch blood sugar Yes [id number] Check Univers diagnostic 9-23 blood ity of (FREESTYLE 00:00: glucose 4 [place] LITE 00 times a Medical STRIPS) day Branch strip Blood-Gluco Yes [id number] Use as Univers se Meter 6-28 directed ity of (FREESTYLE 00:00: [place] FREEDOM 00 Medical LITE) Kit Branch lancets 17 2020-0 Yes [id number] Use as U nivers gauge Misc 6-28 directed ity o f 00:00: [address] Immunizations Ordered Filled Immunization Date Status Comments Sourc e Immunization Name Name HPV9 2021-05-21 Completed University of 00:00:00 [facility] Pneumococcal 2021-04-02 Completed [place] o f Polysaccharide, 00:00:00 [place] Med ical PPSV23 (PNEUMOVAX) Branch HPV9 2021-04-01 Completed University of 00:00:00 [facility] TDAP 2021-02-18 Completed University of 00:00:00 [facility] Influenza Virus 2021-02-18 Completed Universit y of Vaccine Quad IM, 00:00:00 [facility] dical Preserv and ABX Branch Free 6 MO-64 YRS Influenza Virus 2018-06-14 Completed Universit y of Vaccine Quad .5 mL 00:00:00 [facility] IM 6+ MO Branch TDAP 2018-06-04 Completed University 00:00:00 [facility] PPD (TB) 2012-06-29 Completed University 00:00:00 [facility] TDAP 2010-08-10 Completed University 00:00:00 [facility] Vital Signs Vital Name Observation Time Observation Value Comments Source Systolic blood 2021-06-04 19:56:00 123 mm[Hg] Univer sity of pressure [facility] Diastolic blood 2021-06-04 19:56:00 79 mm[Hg] Unive rsity of pressure [facility] Heart rate 2021-06-04 19:56:00 72 /min General acute hospital Body temperature 2021-06-04 19:56:[address] [facility] Respiratory rate 2021-06-04 19:56:00 16 /min [facility] Body height 2021-06-04 19:56:00 157.5 cm General acute hospital Body weight 2021-06-04 19:56:00 118.434 kg General acute hospital BMI 2021-06-04 19:56:00 47.76 kg/m2 General acute hospital Procedures Procedure Date / Time Performed Performing Clinician Sourc e POCT TEST 2021-06-04 20:07:00 Cami Frazire [facility] Encounters Start End Encounter Admission Attending Care Care Encounter Source Date/Time Date/Time Type Type Clinicians Facility Department ID 2021-06-04 2021-06-04 Office Freddie [facility] [id number] Univers 13:30:00 14:48:43 Visit Cami Nelson CAMPUS POLICE OFFICER [id number] ity [facility] [id number] Chadd as MATERNAL [id number] Med ical & CHILD 107 [facility] 2020-01-07 2020-01-07 Telephone Adan [facility] [id number] 00:00:00 00:00:00 Lupe Kuhn CAMPUS POLICE OFFICER [id number] REGIONAL [id number] MATERNAL [id number] & CHILD 107 [facility] 2020-01-03 2020-01-03 [id number] 00:00:00 00:00:00 Lupe Kuhn CAMPUS POLICE OFFICER [id number] REGIONAL [id number] MATERNAL [id number] & CHILD 107 [facility] 2020-01-01 2020-01-01 Telephone Adan [facility] [id number] 00:00:00 00:00:00 Lupe Kuhn CAMPUS POLICE OFFICER [id number] REGIONAL [id number] MATERNAL [id number] & CHILD 107 [facility] Results Test Description Test Time Test Comments Results Result Comments Source POCT TEST 2021-06-04 20:07:00 Test Item Value Reference Range Interpretation Comme nts POCT PREG (test code = 1605) Negative On board controls acceptable with C Line (test code = 3574) Yes POCT PREG LOT # (test code = 3575) POCT PREG TEST DATE (test code = 3576) [facility]
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
[2021-07-05 17:08] VITALS: BP 122/86; TEMP 97.9; O2SAT 100
== END 2021-07-05 16:26 | disposition home or self-care (01) ==
LOC: ER 15:11
DX: G89.11 Acute pain due to trauma (principal); V49.40XA Driver injured in collision with unspecified motor vehicles in traffic accident, initial encounter
CPT/HCPCS: 99281